=== PATIENT | female | born 1985 | race Caucasian/White ===

== ENCOUNTER → 2018-02-04 | Outpatient (CLI) | payer OTHER ==
[~2018-02-04] MED LIST: BIRTH CONTROL PILLS; HYDACE5 PO; IBUP800 PO; OXYACE5T PO; RXOXYACE PO
== END ==
LOC: LAB SHORT 16:17 → LAB 16:17
PROVIDERS: Obstetrics & Gynecology
DX: Z01.419 Encounter for gynecological examination (general) (routine) without abnormal findings (principal)
CPT/HCPCS: 87624; G0123

== ENCOUNTER 2022-10-01 07:37 | Emergency (ER) | payer OTHER ==
[~2022-10-01] VITALS: Ht 165.1 cm; Wt 98.4 kg
[2022-10-01] MEDS ORDERED: AMOCLA875 PO (08:34)
[2022-10-01] MEDS ORDERED: HYDR1TAB94 PO (08:34)
== END 2022-10-01 08:44 | disposition home or self-care (01) ==
LOC: ER 07:37
DX: J36 Peritonsillar abscess (principal); Z79.899 Other long term (current) drug therapy
CPT/HCPCS: A9270; J1100

== ENCOUNTER 2022-10-11 22:47 | Emergency (ER) | payer OTHER ==
[~2022-10-11] VITALS: Ht 165.1 cm; Wt 97.5 kg
[~2022-10-11 22:47] MED LIST changes: +AMOCLA875 PO; +HYDR1TAB94 PO
[2022-10-11 23:30] LABS: BASOPHILS ABSOLUTE AUTO 0.05 K/mm3 (0.00-0.23); BASOPHILS PERCENT AUTO 0 % (0-2); EOSINOPHILS ABSOLUTE AUTO 0.11 K/mm3 (0.00-0.68); EOSINOPHILS PERCENT AUTO 1 % (0-6); Hematocrit 40.6 % (33.0-51.0); Hemoglobin 14.2 g/dL (11.5-16.0); IMMATURE GRAN ABSOLUTE AUTO 0.05 K/mm3 (0.00-0.10); IMMATURE GRAN PERCENT AUTO 0 % (0-1); LYMPHOCYTES ABSOLUTE AUTO 3.65 K/mm3 (0.84-5.20); LYMPHOCYTES PERCENT AUTO 26 % (21-46); MONOCYTES ABSOLUTE AUTO 0.86 K/mm3 (0.16-1.47); MONOCYTES PERCENT AUTO 6 % (4-13); Mean Corpuscular HGB 30.6 pg (26.0-34.0); Mean Corpuscular Volume 88 fL (80-100); Mean Platelet Volume 10.3 fL (9.1-12.4); NEUTROPHILS ABSOLUTE AUTO 9.09 K/mm3 (1.96-9.15); NEUTROPHILS PERCENT AUTO 66 % (41-73); Platelet Count 324 K/mm3 (150-400); RDW Coefficient Variation 12.5 % (11.7-14.2); RDW Standard Deviation 40.1 fL (35.1-46.3); Red Blood Cell Count 4.64 M/mm3 (3.80-5.20); White Blood Cell Count 13.81 K/mm3 (4.00-11.30)
[2022-10-11 23:50] LABS: Albumin, Blood 3.9 g/dL (3.4-5.0); Albumin/Globulin Ratio 1.3 (0.8-1.8); Bilirubin, Total 0.1 mg/dL (0.1-1.0); Bun/Creatinine Ratio 20.5 (12.0-20.0); Calcium, Blood 9.1 mg/dL (8.5-10.1); Creatinine, Blood 0.83 mg/dL (0.40-1.00); Globulin, Blood 3.1 g/dL (2.2-4.0)
== END 2022-10-12 01:57 | disposition home or self-care (01) ==
LOC: ER 22:47
PROVIDERS: Student in an Organized Health Care Education/Training Program
DX: R51.9 Headache, unspecified (principal); R11.2 Nausea with vomiting, unspecified; F17.210 Nicotine dependence, cigarettes, uncomplicated; Z79.899 Other long term (current) drug therapy
CPT/HCPCS: 36415; 80053; 85025; 96374; 96375; 99284-25; A9270; J1200; J1885; J2405; J2765

== ENCOUNTER 2022-10-17 01:03 | Emergency (ER) | payer OTHER ==
[~2022-10-17] VITALS: Ht 165.1 cm; Wt 108.9 kg
[2022-10-17 02:50] LABS: BASOPHILS ABSOLUTE AUTO 0.03 K/mm3 (0.00-0.23); BASOPHILS PERCENT AUTO 0 % (0-2); EOSINOPHILS ABSOLUTE AUTO 0.07 K/mm3 (0.00-0.68); EOSINOPHILS PERCENT AUTO 1 % (0-6); Hematocrit 38.4 % (33.0-51.0); Hemoglobin 13.2 g/dL (11.5-16.0); IMMATURE GRAN ABSOLUTE AUTO 0.03 K/mm3 (0.00-0.10); IMMATURE GRAN PERCENT AUTO 0 % (0-1); LYMPHOCYTES ABSOLUTE AUTO 1.91 K/mm3 (0.84-5.20); LYMPHOCYTES PERCENT AUTO 20 % (21-46); MONOCYTES ABSOLUTE AUTO 0.63 K/mm3 (0.16-1.47); MONOCYTES PERCENT AUTO 7 % (4-13); Mean Corpuscular HGB 30.6 pg (26.0-34.0); Mean Corpuscular HGB Conc 34.4 g/dL (31.5-36.5); Mean Corpuscular Volume 89 fL (80-100); Mean Platelet Volume 10.5 fL (9.1-12.4); NEUTROPHILS ABSOLUTE AUTO 6.82 K/mm3 (1.96-9.15); NEUTROPHILS PERCENT AUTO 72 % (41-73); Platelet Count 294 K/mm3 (150-400); RDW Coefficient Variation 12.6 % (11.7-14.2); RDW Standard Deviation 41.2 fL (35.1-46.3); Red Blood Cell Count 4.32 M/mm3 (3.80-5.20); White Blood Cell Count 9.49 K/mm3 (4.00-11.30)
[2022-10-17 03:16] LABS: Albumin, Blood 3.3 g/dL (3.4-5.0); Albumin/Globulin Ratio 1.1 (0.8-1.8); Bilirubin, Total 0.2 mg/dL (0.1-1.0); Bun/Creatinine Ratio 15.2 (12.0-20.0); Calcium, Blood 8.2 mg/dL (8.5-10.1); Creatinine, Blood 0.73 mg/dL (0.40-1.00); Globulin, Blood 2.9 g/dL (2.2-4.0); Magnesium, Blood 1.9 mg/dL (1.6-2.4); Thyroid Stimulating Hormone 1.36 uIU/mL (0.360-4.800); Total Protein, Blood 6.2 g/dL (6.4-8.2)
== END 2022-10-17 06:30 | disposition home or self-care (01) ==
LOC: ER 01:03
PROVIDERS: Student in an Organized Health Care Education/Training Program
DX: R51.9 Headache, unspecified (principal); R20.2 Paresthesia of skin; F17.210 Nicotine dependence, cigarettes, uncomplicated; Z79.899 Other long term (current) drug therapy
CPT/HCPCS: 36415; 70450; 80053; 83735; 84443; 85025; 96374; 96375; 99284-25; J1200; J1885; J2765

== ENCOUNTER 2024-09-16 01:27 | Day surgery (SDC) | payer OTHER ==
[2024-09-16] VITALS (8 sets, daily range): BP systolic 121–133; BP diastolic 78–88
[2024-09-16] MEDS ORDERED: OCRELIZUMAB 300 MG in NS 250 ML IV SCH (06:00)
[2024-09-16] MEDS ORDERED: ASCORBIC ACID500 MG PO (08:00)
[2024-09-16] MEDS ORDERED: VITAMIN D5000 UNIT PO (08:01)
[2024-09-16] MEDS ORDERED: MethylPREDNISolone Sod Succ 125 MG Vial IV SCH (10:40)
[2024-09-16] MEDS ORDERED: DiphenhydrAMINE HCl 50 MG/ML 1ML Vial IV SCH (10:40)
[2024-09-16] MEDS ORDERED: Acetaminophen 325 MG TABLET PO SCH (10:40)
--- NOTE | 2024-09-16 11:18 | NUR ---
0939: PT COMPLAINS OF ITCHING TO HEAD. OCREVUS RUNNING AT 120 ML/HR, TURNED DOWN TO 90 ML/HR. CALL LIGHT PROVIDED FOR ANY CHANGES. 0952: PT COMPLAINS OF FLUSHING AND HEAT TO FACE AND BACK, REDNESS NOTED TO SKIN. ALSO STATES "I FEEL LIKE SOMETHING IS IN MY THROAT". VSS, 97% SAT ON RA. OCREVUS STOPPED, DISCONNECTED AND IV FLUSHED. PT REMAINS ON CONTINUOUS VITAL SIGNS MONITORING UNDER CLOSE OBSERVATION. CALL PLACED TO DR. HAYES FOR ORDERS. 1025: PT STATES "I'M FEELING BETTER. I DON'T FEEL THAT IN MY THROAT ANY MORE." CALL PLACED AGAIN TO DR. HAYES. SPOKE AT LENGTH WITH JORDAN CLARK AND PROVIDED DETAILS R/T PT REACTION. RECEIVED NEW ORDERS FOR TYLENOL, BENADRYL, AND SOLUMEDROL. WILL ADMINISTER AND WAIT 30 MIN TO ATTEMPT RESTARTING THE OCREVUS AT THE INITIAL RATE OF 30 ML/HR. PT IS CALM AND COOPERATIVE. 1115: PT IS RESTING AND OPENS EYES TO VOICE. STATES "I FEEL FINE, I'M READY TO TRY AGAIN". OCREVUS RESTARTED AT 30 ML/HR. CALL LIGHT IN REACH FOR PT TO CALL WITH ANY SIDE EFFECTS. WILL CONTINUE TO MONITOR CLOSELY.
--- NOTE | 2024-09-16 14:17 | NUR ---
PT WAS MEDICATED PER ATTENDING RN'S NOTES: WHEN PT WAS D/C HOME SHE HAD NO S/S OF REACTION, VSS. DISCHARGED HOME WITH HER
== END 2024-09-16 13:41 | disposition home or self-care (01) ==
LOC: ATC 01:27
DX: G35 Multiple sclerosis (principal); F17.200 Nicotine dependence, unspecified, uncomplicated; Z79.899 Other long term (current) drug therapy
CPT/HCPCS: 96365; 96366; 96375; A9270; J1200; J2350; J2919; J7050

== ENCOUNTER 2024-09-30 00:40 | Day surgery (SDC) | payer OTHER ==
[~2024-09-30 00:40] MED LIST changes: +ASCORBIC ACID500 MG PO; +VITAMIN D5000 UNIT PO
[2024-09-30] MEDS ORDERED: OCRELIZUMAB 300 MG in NS 250 ML IV SCH (06:00)
[2024-09-30] MEDS ORDERED: DiphenhydrAMINE HCL 25 MG Cap PO PRN (07:15)
[2024-09-30] MEDS ORDERED: Acetaminophen 325 MG TABLET PO PRN (07:15)
[2024-09-30] MEDS ORDERED: MethylPREDNISolone Sod Succ 125 MG Vial IV SCH ×2 (07:15)
[2024-09-30] MEDS ORDERED: DiphenhydrAMINE HCl 50 MG/ML 1ML Vial IV SCH (07:15)
[2024-09-30 07:45] VITALS: BP 139/95
[2024-09-30] MEDS ORDERED: OCREVUS ZUNOVO23 ML IV (07:50)
[2024-09-30 08:25] VITALS: BP 129/86
[2024-09-30 09:38] VITALS: BP 126/70
--- NOTE | 2024-09-30 12:14 | NUR ---
PT STATES SHE FEELS GREAT THIS TIME. NO C/O. ENCOURAGED PT TO RETURN TO ER IF SHE HAS CHADD CONCERNS.
== END 2024-09-30 12:10 | disposition home or self-care (01) ==
LOC: ATC 00:40
DX: G35 Multiple sclerosis (principal); R83.8 Other abnormal findings in cerebrospinal fluid; Z88.8 Allergy status to other drugs, medicaments and biological substances; Z79.899 Other long term (current) drug therapy; F17.210 Nicotine dependence, cigarettes, uncomplicated
CPT/HCPCS: 96365; 96366; 96375; A9270; J2350; J2919; J7050

== ENCOUNTER 2025-03-30 01:52 | Day surgery (SDC) | payer OTHER ==
[~2025-03-30 01:52] MED LIST changes: +OCREVUS ZUNOVO23 ML IV
[2025-03-30] MEDS ORDERED: OCRELIZUMAB 600 MG in NS 500 ML IV SCH (06:00)
[2025-03-30 07:23] VITALS: BP 130/88
[2025-03-30 09:10] VITALS: BP 136/94
[2025-03-30 09:42] VITALS: BP 127/77
[2025-03-30 10:13] VITALS: BP 122/70
[2025-03-30 11:13] VITALS: BP 118/68
== END 2025-03-30 12:34 | disposition home or self-care (01) ==
LOC: ATC 01:52
DX: G35 Multiple sclerosis (principal); R83.8 Other abnormal findings in cerebrospinal fluid; F17.200 Nicotine dependence, unspecified, uncomplicated; Z79.899 Other long term (current) drug therapy
CPT/HCPCS: 96365; 96366; A9270; J2350; J2919; J7040